=== PATIENT | female | born 1945 | race Caucasian/White ===

== ENCOUNTER 2020-04-10 13:37 | Inpatient (IN) | payer OTHER ==
[2020-04-10] MEDS ORDERED: SODIUM CHLORIDE 0.9% 500 ML INFUS.BAG IV ONE (15:55)
[2020-04-10 16:23] LABS: BASO % 0.5 % (0-2.0); EOS % 0.5 % (0-4.5); HEMATOCRIT 42.4 % (32.4-45.2); LYMPH % 16.9 % (8-40); MCH 29.2 pg (25.7-33.7); MCHC 33.2 g/dl (32.0-36.0); MEAN PLT VOLUME 11.1 fl (7.5-11.1); NEUT % 75.1 % (42.8-82.8); PLATELET COUNT 255 K/MM3 (134-434); RBC 4.81 M/mm3 (3.60-5.2); RDW 14.9 % (11.6-15.6); WHITE BLOOD COUNT 11.8 K/mm3 (4.0-10.0)
[2020-04-10 16:31] LABS: INR 0.88 (0.83-1.09); PROTHROMBIN TIME (PATIENT) 10.9 SEC (9.7-13.0)
[2020-04-10 16:40] LABS: CHLORIDE 103 mmol/L (98-107); POTASSIUM 3.9 mmol/L (3.5-5.1); SODIUM 138 mmol/L (136-145)
[2020-04-10 16:43] LABS: ALBUMIN 3.9 g/dl (3.4-5.0); ANION GAP 5 MMOL/L (8-16); CALCIUM 9.4 mg/dL (8.5-10.1); CO2 30 mmol/L (21-32); GLUCOSE,RANDOM 119 mg/dL (74-106)
[2020-04-10 16:44] LABS: LIPASE 204 U/L (73-393); MAGNESIUM 1.9 mg/dL (1.8-2.4)
[2020-04-10 16:46] LABS: CREATININE 0.7 mg/dL (0.55-1.3); PHOSPHOROUS 3.8 mg/dL (2.5-4.9); SGOT/AST 12 U/L (15-37); SGPT/ALT 36 U/L (13-61)
[2020-04-10 16:47] LABS: BILIRUBIN,TOTAL 0.3 mg/dL (0.2-1)
[2020-04-10 16:48] LABS: TOT PROT 7.5 g/dl (6.4-8.2)
[2020-04-10 16:49] LABS: ALK PHOS 114 U/L (45-117)
[2020-04-10 17:37] LABS: URINE APPEARANCE CLEAR; URINE BILIRUBIN NEGATIVE (NEGATIVE); URINE COLOR YELLOW; URINE GLUCOSE (UA) NEGATIVE (NEGATIVE); URINE KETONE NEGATIVE (NEGATIVE); URINE LEUK ESTERASE NEGATIVE (NEGATIVE); URINE NITRITE NEGATIVE (NEGATIVE); URINE PROTEIN NEGATIVE (NEGATIVE)
[2020-04-10] MEDS ORDERED: PIPERACILLIN/TAZOB 3.375 GM 3.375 GM in DEXTROSE 5%-WATER - 50 ML IVPB ONE (21:14)
[2020-04-10] MEDS ORDERED: PIPERACILLIN/TAZOB 3.375 GM 3.375 GM/50 ML BAG IVPB ONE (21:44)
[2020-04-10] MEDS: SODIUM CHLORIDE 1,000 ML IV SCH (23:47)
[2020-04-11] MEDS ORDERED: ACETAMINOPHEN 325 MG TABLET (FP) PO ONE (03:37)
[2020-04-11] MEDS ORDERED: LIDOCAINE 5% TOPICAL PATCH TP ONE (03:52)
[2020-04-11] MEDS ORDERED: DEXTROSE 5%-WATER - 50 ML IVPB ONE ×4 (03:56→20:41)
[2020-04-11] MEDS ORDERED: PIPERACILLIN/TAZOBACTAM 3.375 GM VIAL IVPB ONE ×4 (03:56→20:40)
[2020-04-11] MEDS: PIPERACILLIN/TAZOB 3.375 GM 3.375 GM in DEXTROSE 5%-WATER - 50 ML IVPB SCH ×4 (04:33→22:36)
[2020-04-11] MEDS: INSULIN SLIDING SCALE (NOVOLOG) 1 VIAL SQ SCH ×4 (06:24→21:41)
[2020-04-11] MEDS ORDERED: INSULIN SLIDING SCALE (NOVOLOG) 1 VIAL SQ SCH (07:00)
[2020-04-11 08:22] LABS: BASO % 0.4 % (0-2.0); HEMATOCRIT 39.8 % (32.4-45.2); HEMOGLOBIN 13.2 GM/dL (10.7-15.3); MCH 29.3 pg (25.7-33.7); MCHC 33.3 g/dl (32.0-36.0); MEAN PLT VOLUME 11.2 fl (7.5-11.1); MONO % 10.8 % (3.8-10.2); NEUT % 58.8 % (42.8-82.8); PLATELET COUNT 200 K/MM3 (134-434); RBC 4.52 M/mm3 (3.60-5.2); WHITE BLOOD COUNT 6.8 K/mm3 (4.0-10.0)
[2020-04-11 08:56] LABS: CALCIUM 8.7 mg/dL (8.5-10.1)
[2020-04-11 08:57] LABS: ALBUMIN 3.2 g/dl (3.4-5.0); BLOOD UREA NITROGEN 10.8 mg/dL (7-18); MAGNESIUM 1.9 mg/dL (1.8-2.4)
[2020-04-11 08:59] LABS: CREATININE 0.6 mg/dL (0.55-1.3); PHOSPHOROUS 3.8 mg/dL (2.5-4.9)
[2020-04-11 09:01] LABS: BILIRUBIN,TOTAL 0.3 mg/dL (0.2-1)
[2020-04-11] MEDS: ENOXAPARIN NA (PORCINE) 40 MG/0.4 ML DISP.SYRIN SQ SCH (11:13)
[2020-04-11] MEDS: LIDOCAINE 5% TOPICAL PATCH TP SCH (11:18)
[2020-04-11] MEDS: CYCLOBENZAPRINE HCL 5 MG TABLET PO SCH (11:19)
[2020-04-11] MEDS: LIDOCAINE PATCH REMOVAL MC SCH (21:40)
[2020-04-11] MEDS ORDERED: LIDOCAINE PATCH REMOVAL MC SCH (22:00)
[2020-04-11] MEDS ORDERED: IBUPROFEN 400 MG TABLET (FP) PO ONE (23:42)
[2020-04-12] MEDS: SODIUM CHLORIDE 1,000 ML IV SCH ×2 (00:14→16:16)
[2020-04-12] MEDS ORDERED: PIPERACILLIN/TAZOBACTAM 3.375 GM VIAL IVPB ONE ×4 (01:42→21:09)
[2020-04-12] MEDS ORDERED: DEXTROSE 5%-WATER - 50 ML IVPB ONE ×4 (01:43→21:09)
[2020-04-12] MEDS: PIPERACILLIN/TAZOB 3.375 GM 3.375 GM in DEXTROSE 5%-WATER - 50 ML IVPB SCH ×4 (02:58→21:22)
[2020-04-12] MEDS: INSULIN SLIDING SCALE (NOVOLOG) 1 VIAL SQ SCH ×4 (06:27→21:37)
[2020-04-12] MEDS ORDERED: FAMOTIDINE 20 MG TABLET PO ONE (06:36)
[2020-04-12] MEDS ORDERED: INSULIN (NOVOLOG) ASPART 100 UNITS/ML 10ML VIAL ONE (07:02)
[2020-04-12] MEDS ORDERED: PT OWN MED DRAWER 7, Y5N ONE (08:53)
[2020-04-12] MEDS: CYCLOBENZAPRINE HCL 5 MG TABLET PO SCH (09:03)
[2020-04-12] MEDS: LIDOCAINE 5% TOPICAL PATCH TP SCH (09:04)
[2020-04-12] MEDS: ENOXAPARIN NA (PORCINE) 40 MG/0.4 ML DISP.SYRIN SQ SCH (09:04)
[2020-04-12 11:55] LABS: BASO % 0.5 % (0-2.0); EOS % 1.1 % (0-4.5); HEMOGLOBIN 13.6 GM/dL (10.7-15.3); LYMPH % 18.9 % (8-40); MCH 29.5 pg (25.7-33.7); MCHC 33.3 g/dl (32.0-36.0); MEAN CELL VOLUME 88.7 fl (80-96); MEAN PLT VOLUME 11.1 fl (7.5-11.1); MONO % 8.5 % (3.8-10.2); PLATELET COUNT 225 K/MM3 (134-434); RBC 4.62 M/mm3 (3.60-5.2); RDW 15.1 % (11.6-15.6); WHITE BLOOD COUNT 10.6 K/mm3 (4.0-10.0)
[2020-04-12 12:14] LABS: POTASSIUM 4.2 mmol/L (3.5-5.1)
[2020-04-12 12:15] LABS: CALCIUM 9.4 mg/dL (8.5-10.1)
[2020-04-12 12:16] LABS: BLOOD UREA NITROGEN 11.8 mg/dL (7-18)
[2020-04-12 12:19] LABS: CREATININE 0.8 mg/dL (0.55-1.3)
[2020-04-12 14:01] VITALS: BMI 31.9
[2020-04-12] MEDS: LIDOCAINE PATCH REMOVAL MC SCH (21:23)
[2020-04-13] MEDS ORDERED: PIPERACILLIN/TAZOBACTAM 3.375 GM VIAL IVPB ONE ×3 (00:44→17:20)
[2020-04-13] MEDS ORDERED: DEXTROSE 5%-WATER - 50 ML IVPB ONE ×3 (00:44→17:20)
[2020-04-13] MEDS: PIPERACILLIN/TAZOB 3.375 GM 3.375 GM in DEXTROSE 5%-WATER - 50 ML IVPB SCH ×3 (02:00→17:28)
[2020-04-13] MEDS: SODIUM CHLORIDE 1,000 ML IV SCH ×2 (02:05→14:27)
[2020-04-13] MEDS: INSULIN SLIDING SCALE (NOVOLOG) 1 VIAL SQ SCH ×4 (06:01→22:09)
[2020-04-13 08:06] LABS: BASO % 0.8 % (0-2.0); EOS % 1.1 % (0-4.5); HEMATOCRIT 41.7 % (32.4-45.2); HEMOGLOBIN 13.6 GM/dL (10.7-15.3); MCH 28.4 pg (25.7-33.7); MCHC 32.7 g/dl (32.0-36.0); MEAN PLT VOLUME 10.6 fl (7.5-11.1); NEUT % 68.1 % (42.8-82.8); PLATELET COUNT 232 K/MM3 (134-434); RBC 4.79 M/mm3 (3.60-5.2); RDW 14.8 % (11.6-15.6); WHITE BLOOD COUNT 9.8 K/mm3 (4.0-10.0)
[2020-04-13 08:30] LABS: CALCIUM 8.6 mg/dL (8.5-10.1)
[2020-04-13 08:31] LABS: BLOOD UREA NITROGEN 10.2 mg/dL (7-18); MAGNESIUM 1.8 mg/dL (1.8-2.4)
[2020-04-13 08:34] LABS: CREATININE 0.7 mg/dL (0.55-1.3); PHOSPHOROUS 3.4 mg/dL (2.5-4.9)
[2020-04-13] MEDS: CYCLOBENZAPRINE HCL 5 MG TABLET PO SCH (09:52)
[2020-04-13] MEDS: LIDOCAINE 5% TOPICAL PATCH TP SCH (09:52)
[2020-04-13] MEDS: ACETAMINOPHEN 325 MG TABLET (FP) PO PRN (20:37)
[2020-04-13] MEDS ORDERED: PANTOPRAZOLE 40 MG TABLET PO ONE (21:04)
[2020-04-13] MEDS: MELATONIN 5 MG TABLETS PO PRN (22:09)
[2020-04-13] MEDS: LIDOCAINE PATCH REMOVAL MC SCH (22:10)
[2020-04-13] MEDS: HYDROCORTISONE 2.5% TOPICAL CREAM 30 GM TUBE TP SCH (22:10)
[2020-04-14] MEDS: SODIUM CHLORIDE 1,000 ML IV SCH ×2 (00:40→12:56)
[2020-04-14] MEDS ORDERED: PIPERACILLIN/TAZOBACTAM 3.375 GM VIAL IVPB ONE ×3 (01:04→17:11)
[2020-04-14] MEDS ORDERED: DEXTROSE 5%-WATER - 50 ML IVPB ONE ×3 (01:04→17:11)
[2020-04-14] MEDS: PIPERACILLIN/TAZOB 3.375 GM 3.375 GM in DEXTROSE 5%-WATER - 50 ML IVPB SCH ×3 (01:16→17:14)
[2020-04-14] MEDS: INSULIN SLIDING SCALE (NOVOLOG) 1 VIAL SQ SCH ×4 (06:42→21:48)
[2020-04-14 08:00] LABS: HEMATOCRIT 41.1 % (32.4-45.2); HEMOGLOBIN 13.4 GM/dL (10.7-15.3); MCH 28.7 pg (25.7-33.7); MCHC 32.7 g/dl (32.0-36.0); MEAN CELL VOLUME 87.6 fl (80-96); MEAN PLT VOLUME 10.8 fl (7.5-11.1); PLATELET COUNT 236 K/MM3 (134-434); RBC 4.69 M/mm3 (3.60-5.2); RDW 14.6 % (11.6-15.6); WHITE BLOOD COUNT 9.1 K/mm3 (4.0-10.0)
[2020-04-14 08:12] LABS: CALCIUM 8.6 mg/dL (8.5-10.1)
[2020-04-14] MEDS ORDERED: PT OWN MED DRAWER 7, Y5N ONE ×3 (08:12→11:11)
[2020-04-14 08:13] LABS: MAGNESIUM 1.7 mg/dL (1.8-2.4)
[2020-04-14 08:16] LABS: CREATININE 0.6 mg/dL (0.55-1.3); PHOSPHOROUS 3.4 mg/dL (2.5-4.9)
[2020-04-14] MEDS ORDERED: MAGNESIUM SULF 50% (8.12 MEQ/2 ML-1 GM VIAL) IVPB ONE (09:05)
[2020-04-14] MEDS: CYCLOBENZAPRINE HCL 5 MG TABLET PO SCH (09:11)
[2020-04-14] MEDS: LIDOCAINE 5% TOPICAL PATCH TP SCH (09:14)
[2020-04-14] MEDS: ENOXAPARIN NA (PORCINE) 40 MG/0.4 ML DISP.SYRIN SQ SCH (10:25)
[2020-04-14] MEDS ORDERED: INSULIN (NOVOLOG) ASPART 100 UNITS/ML 10ML VIAL ONE ×2 (11:14→19:47)
[2020-04-14] MEDS: HYDROCORTISONE 2.5% TOPICAL CREAM 30 GM TUBE TP SCH ×2 (11:15→21:49)
[2020-04-14] MEDS ORDERED: POLYETHYLENE GLYCOL 3350 119 GM BTL PO SCH (14:15)
[2020-04-14] MEDS: ACETAMINOPHEN 325 MG TABLET (FP) PO PRN (18:14)
[2020-04-14] MEDS: MELATONIN 5 MG TABLETS PO PRN (21:48)
[2020-04-14] MEDS: LIDOCAINE PATCH REMOVAL MC SCH (21:49)
[2020-04-15] MEDS: SODIUM CHLORIDE 1,000 ML IV SCH ×3 (00:20→15:53)
[2020-04-15] MEDS ORDERED: DEXTROSE 5%-WATER - 50 ML IVPB ONE ×3 (02:01→18:06)
[2020-04-15] MEDS ORDERED: PIPERACILLIN/TAZOBACTAM 3.375 GM VIAL IVPB ONE ×3 (02:01→18:06)
[2020-04-15] MEDS ORDERED: PANTOPRAZOLE SODIUM 40 MG VIAL IVPUSH ONE (02:15)
[2020-04-15] MEDS: PIPERACILLIN/TAZOB 3.375 GM 3.375 GM in DEXTROSE 5%-WATER - 50 ML IVPB SCH ×3 (02:28→18:10)
[2020-04-15] MEDS: ACETAMINOPHEN 325 MG TABLET (FP) PO PRN ×2 (02:33→22:35)
[2020-04-15] MEDS: INSULIN SLIDING SCALE (NOVOLOG) 1 VIAL SQ SCH ×4 (06:18→22:36)
[2020-04-15 07:41] LABS: HEMOGLOBIN 13.1 GM/dL (10.7-15.3); MCH 29.4 pg (25.7-33.7); MCHC 33.5 g/dl (32.0-36.0); MEAN CELL VOLUME 87.8 fl (80-96); MEAN PLT VOLUME 10.7 fl (7.5-11.1); PLATELET COUNT 203 K/MM3 (134-434); RBC 4.44 M/mm3 (3.60-5.2); RDW 14.8 % (11.6-15.6); WHITE BLOOD COUNT 8.7 K/mm3 (4.0-10.0)
[2020-04-15 08:12] LABS: ALBUMIN 3.1 g/dl (3.4-5.0); BLOOD UREA NITROGEN 8.8 mg/dL (7-18); CALCIUM 8.5 mg/dL (8.5-10.1)
[2020-04-15 08:13] LABS: MAGNESIUM 1.8 mg/dL (1.8-2.4)
[2020-04-15 08:15] LABS: CREATININE 0.6 mg/dL (0.55-1.3)
[2020-04-15 08:16] LABS: BILIRUBIN,TOTAL 0.8 mg/dL (0.2-1)
[2020-04-15] MEDS: LIDOCAINE 5% TOPICAL PATCH TP SCH (11:17)
[2020-04-15] MEDS: CYCLOBENZAPRINE HCL 5 MG TABLET PO SCH (11:17)
[2020-04-15] MEDS: HYDROCORTISONE 2.5% TOPICAL CREAM 30 GM TUBE TP SCH ×2 (11:18→22:37)
[2020-04-15] MEDS: ENOXAPARIN NA (PORCINE) 40 MG/0.4 ML DISP.SYRIN SQ SCH (13:47)
[2020-04-15] MEDS: PANTOPRAZOLE 40 MG TABLET PO SCH (15:45)
[2020-04-15] MEDS: MELATONIN 5 MG TABLETS PO PRN (22:32)
[2020-04-15] MEDS: LIDOCAINE PATCH REMOVAL MC SCH (22:36)
[2020-04-16] MEDS ORDERED: PIPERACILLIN/TAZOBACTAM 3.375 GM VIAL IVPB ONE ×3 (01:46→17:21)
[2020-04-16] MEDS ORDERED: DEXTROSE 5%-WATER - 50 ML IVPB ONE ×3 (01:46→17:22)
[2020-04-16] MEDS: PIPERACILLIN/TAZOB 3.375 GM 3.375 GM in DEXTROSE 5%-WATER - 50 ML IVPB SCH ×3 (01:53→17:34)
[2020-04-16] MEDS: SODIUM CHLORIDE 1,000 ML IV SCH (01:54)
[2020-04-16] MEDS: INSULIN SLIDING SCALE (NOVOLOG) 1 VIAL SQ SCH ×4 (06:07→22:44)
[2020-04-16 08:16] LABS: HEMATOCRIT 42.5 % (32.4-45.2); MCH 28.6 pg (25.7-33.7); MCHC 32.8 g/dl (32.0-36.0); MEAN CELL VOLUME 87.2 fl (80-96); MEAN PLT VOLUME 10.4 fl (7.5-11.1); PLATELET COUNT 258 K/MM3 (134-434); RBC 4.87 M/mm3 (3.60-5.2); RDW 14.8 % (11.6-15.6); WHITE BLOOD COUNT 8.2 K/mm3 (4.0-10.0)
[2020-04-16] MEDS ORDERED: PT OWN MED DRAWER 7, Y5N ONE ×3 (08:58→22:34)
[2020-04-16] MEDS: LIDOCAINE 5% TOPICAL PATCH TP SCH (09:05)
[2020-04-16] MEDS: CYCLOBENZAPRINE HCL 5 MG TABLET PO SCH (09:05)
[2020-04-16] MEDS: ENOXAPARIN NA (PORCINE) 40 MG/0.4 ML DISP.SYRIN SQ SCH (09:05)
[2020-04-16 09:12] LABS: POTASSIUM 4.1 mmol/L (3.5-5.1)
[2020-04-16] MEDS: HYDROCORTISONE 2.5% TOPICAL CREAM 30 GM TUBE TP SCH ×2 (09:14→22:00)
[2020-04-16] MEDS: PANTOPRAZOLE 40 MG TABLET PO SCH (09:17)
[2020-04-16 10:00] LABS: CALCIUM 8.9 mg/dL (8.5-10.1)
[2020-04-16 10:01] LABS: BLOOD UREA NITROGEN 8.6 mg/dL (7-18)
[2020-04-16 10:03] LABS: MAGNESIUM 1.7 mg/dL (1.8-2.4)
[2020-04-16 10:08] LABS: CREATININE 0.7 mg/dL (0.55-1.3); PHOSPHOROUS 3.8 mg/dL (2.5-4.9)
[2020-04-16] MEDS: POLYETHYLENE GLYCOL 3350 119 GM BTL PO SCH (14:57)
[2020-04-16] MEDS ORDERED: POLYETHYLENE GLYCOL 3350 119 GM BTL PO SCH (15:00)
[2020-04-16] MEDS ORDERED: MAGNESIUM SULF 50% (8.12 MEQ/2 ML-1 GM VIAL) IVPB ONE (17:30)
[2020-04-16] MEDS: PANTOPRAZOLE SODIUM 40 MG VIAL IVPUSH SCH (18:29)
[2020-04-16] MEDS ORDERED: PANTOPRAZOLE 40 MG TABLET PO SCH (22:00)
[2020-04-16] MEDS: LIDOCAINE PATCH REMOVAL MC SCH (22:00)
[2020-04-16] MEDS: MELATONIN 5 MG TABLETS PO PRN (22:36)
[2020-04-16] MEDS: ACETAMINOPHEN 325 MG TABLET (FP) PO PRN (22:36)
[2020-04-17] MEDS ORDERED: PIPERACILLIN/TAZOBACTAM 3.375 GM VIAL IVPB ONE ×2 (03:04→10:02)
[2020-04-17] MEDS ORDERED: DEXTROSE 5%-WATER - 50 ML IVPB ONE ×2 (03:05→10:02)
[2020-04-17] MEDS: PIPERACILLIN/TAZOB 3.375 GM 3.375 GM in DEXTROSE 5%-WATER - 50 ML IVPB SCH ×2 (03:06→10:19)
[2020-04-17] MEDS: SODIUM CHLORIDE 1,000 ML IV SCH ×2 (03:14→13:18)
[2020-04-17] MEDS: INSULIN SLIDING SCALE (NOVOLOG) 1 VIAL SQ SCH (06:23)
[2020-04-17 07:48] LABS: HEMOGLOBIN 14.1 GM/dL (10.7-15.3); MCH 28.1 pg (25.7-33.7); MEAN CELL VOLUME 87.7 fl (80-96); MEAN PLT VOLUME 10.5 fl (7.5-11.1); PLATELET COUNT 269 K/MM3 (134-434); RBC 5.02 M/mm3 (3.60-5.2); RDW 14.7 % (11.6-15.6); WHITE BLOOD COUNT 8.3 K/mm3 (4.0-10.0)
[2020-04-17 08:02] LABS: POTASSIUM 4.1 mmol/L (3.5-5.1)
[2020-04-17 08:08] LABS: BLOOD UREA NITROGEN 8.7 mg/dL (7-18); CALCIUM 9.4 mg/dL (8.5-10.1); MAGNESIUM 2.1 mg/dL (1.8-2.4)
[2020-04-17 08:12] LABS: CREATININE 0.6 mg/dL (0.55-1.3); PHOSPHOROUS 3.4 mg/dL (2.5-4.9)
[2020-04-17] MEDS: PANTOPRAZOLE SODIUM 40 MG VIAL IVPUSH SCH (10:11)
[2020-04-17] MEDS: ENOXAPARIN NA (PORCINE) 40 MG/0.4 ML DISP.SYRIN SQ SCH (10:11)
[2020-04-17] MEDS: CYCLOBENZAPRINE HCL 5 MG TABLET PO SCH (10:12)
[2020-04-17] MEDS: HYDROCORTISONE 2.5% TOPICAL CREAM 30 GM TUBE TP SCH (10:13)
[2020-04-17] MEDS: LIDOCAINE 5% TOPICAL PATCH TP SCH (10:18)
[2020-04-17] MEDS: POLYETHYLENE GLYCOL 3350 119 GM BTL PO SCH (10:21)
[2020-04-17] MEDS ORDERED: LOSARTAN 50MG/HCTZ 12.5MG 1 TAB PO SCH (15:30)
[2020-04-17] MEDS ORDERED: PT OWN MED DRAWER 7, Y5N ONE (16:07)
[2020-04-17 17:15] VITALS: TEMP 97.8
[2020-04-17 18:08] VITALS: BP 141/61; PULSE 73
== END 2020-04-17 18:08 | disposition home or self-care (01) | DRG 392 ==
LOC: JER 13:37 → JERBED 21:14 → J8W 04-11 03:31
PROVIDERS: ADMIT Hospitalist
DX: K57.20 Diverticulitis of large intestine with perforation and abscess without bleeding (principal); K76.89 Other specified diseases of liver; J44.9 Chronic obstructive pulmonary disease, unspecified; E11.9 Type 2 diabetes mellitus without complications; K59.09 Other constipation; I10 Essential (primary) hypertension; K86.89 Other specified diseases of pancreas; D72.829 Elevated white blood cell count, unspecified; D35.02 Benign neoplasm of left adrenal gland; D35.01 Benign neoplasm of right adrenal gland; M54.30 Sciatica, unspecified side; E83.42 Hypomagnesemia; K57.30 Diverticulosis of large intestine without perforation or abscess without bleeding; K64.9 Unspecified hemorrhoids; E66.9 Obesity, unspecified; Z68.32 Body mass index [BMI] 32.0-32.9, adult; K60.2 Anal fissure, unspecified; K21.9 Gastro-esophageal reflux disease without esophagitis; Z85.51 Personal history of malignant neoplasm of bladder
CPT/HCPCS: 36415; 71275-TC; 74177-TC; 80048; 80053; 81003; 82550; 82962; 83605; 83690; 83735; 83880; 84100; 84484; 85025; 85027; 85610; 86850; 86900; 86901; 87040; 93005; 93010; 97116-GP; 97161-GP; 99285-25; C9803; Q9967; U0003